=== PATIENT | male | born 1970 | race Caucasian/White ===

== ENCOUNTER 2022-02-26 21:09 | Inpatient (IN) | payer MEDICAID ==
[~2022-02-26] VITALS: Ht 175.3 cm; Wt 84.4 kg
[2022-02-26] MEDS ORDERED: IV NORMAL SALINE 1000 ML BAG IV ONE (21:30)
[2022-02-26 21:58] LABS: HEMATOCRIT 39.8 % (36.7-47.1); MEAN CORPUSCULAR VOLUME 90.6 fL (73.0-96.2); PLATELET COUNT (AUTO) 250 K/uL (152-348)
[2022-02-26 22:10] LABS: CARBON DIOXIDE 23 mmol/L (21-32); CHLORIDE 105 mmol/L (98-107); CREATININE 1.6 mg/dL (0.6-1.3); GLUCOSE 108 mg/dL (74-106); POTASSIUM 3.2 mmol/L (3.5-5.1); UREA NITROGEN, BLOOD 18 mg/dL (7-18)
[2022-02-26 22:18] LABS: ALANINE AMINOTRANSFERASE 27 U/L (16-63); ALKALINE PHOSPHATASE 39 U/L (50-136); ASPARTATE AMINOTRANSFERASE 24 U/L (15-37); BILIRUBIN,DIRECT 0.1 mg/dL (0.0-0.2); BILIRUBIN,TOTAL 0.4 mg/dL (0.2-1.0); TOTAL PROTEIN, SERUM 7.6 g/dL (6.4-8.2)
[2022-02-26 22:22] LABS: ETHANOL 230 MG/DL (0-0)
[2022-02-26 22:40] LABS: ACETAMINOPHEN < 2.0 ug/mL (10-30)
[2022-02-26 22:44] LABS: THYROID STIMULATING HORMONE 3.259 mIU/mL (0.358-3.740)
[2022-02-26 23:47] LABS: *BILIRUBIN,URIN NEGATIVE (NEGATIVE); *BLOOD, URINE NEGATIVE (NEGATIVE); *CLARITY,URINE CLEAR (CLEAR); *COLOR,URINE YELLOW (YELLOW); *KETONES,URINE TRACE (NEGATIVE); *UROBILINOGEN,URINE 0.2 E.U./dl (NORMAL); LEUKOCYTE ESTERASE ,URINE NEGATIVE (NEGATIVE); NITRITE, URINE NEGATIVE (NEGATIVE); UGLUCOSE NEGATIVE (NEGATIVE)
[2022-02-27 00:04] LABS: *AMPHETAMINE, URINE NEGATIVE (NEGATIVE); *CANNABINOID, URINE NEGATIVE (NEGATIVE); *COCCAINE, URINE NEGATIVE (NEGATIVE); *OPIATE, URINE NEGATIVE (NEGATIVE); *PHENCYCLIDINE SCREEN,URINE NEGATIVE (NEGATIVE)
[2022-02-27] MEDS ORDERED: REMEDY ESSENTIAL ZINC PASTE 113 GM TP PRN (03:45)
[2022-02-27] MEDS ORDERED: IV NS 1000 ML 1,000 ML IV PRN (03:45)
[2022-02-27] MEDS ORDERED: ONDANSETRON 4 MG/2 ML VIAL IV PRN (03:45)
[2022-02-27] MEDS ORDERED: MAGNESIUM HYDROXIDE 30 ML LIQUID UDC PO PRN (03:45)
[2022-02-27] MEDS ORDERED: ACETAMINOPHEN 325 MG TABLET PO PRN (03:45)
[2022-02-27 05:11] VITALS: BP 99/56
[2022-02-27 08:56] VITALS: BP_SYST 136; BP_SYST 139; BP_SYST 141; BP_DIAS 86; BP_DIAS 87; BP_DIAS 88
[2022-02-27 10:40] LABS: HEMATOCRIT 39.7 % (36.7-47.1); MEAN CORPUSCULAR HEMOGLOBIN 31.5 uug (23.8-33.4); PLATELET COUNT (AUTO) 207 K/uL (152-348)
[2022-02-27 11:02] VITALS: BP 135/86
[2022-02-27 11:27] LABS: CREATININE 1.1 mg/dL (0.6-1.3); MAGNESIUM 1.6 mg/dL (1.8-2.4); PHOSPHOROUS 2.9 mg/dL (2.5-4.9); POTASSIUM 3.7 mmol/L (3.5-5.1)
[2022-02-27 12:47] LABS: THYROID STIMULATING HORMONE 1.414 mIU/mL (0.358-3.740)
== END 2022-02-27 11:50 | disposition home or self-care (01) | DRG 775 ==
LOC: ER 21:14 → TELE3 02-27 03:00
DX: F10.129 Alcohol abuse with intoxication, unspecified (principal); N17.9 Acute kidney failure, unspecified; E87.20 Acidosis, unspecified; R55 Syncope and collapse; E86.0 Dehydration; E87.6 Hypokalemia; F40.240 Claustrophobia; F41.0 Panic disorder [episodic paroxysmal anxiety]; Y90.7 Blood alcohol level of 200-239 mg/100 ml; I47.1 Supraventricular tachycardia
CPT/HCPCS: 36415; 71045; 83605; 83735; 84100; 84443; 84484; 85025; 85730; 87040; 93005; A4663; G0378; G0480; J7040